=== PATIENT | male | born 1965 | race Hispanic/Latino ===

== ENCOUNTER 2018-09-10 20:50 | Emergency (ER) | payer OTHER, SELFPAY | END 2018-09-10 21:27 | disposition home or self-care (01) | LOC: EDH 20:50 | DX: J02.9 Acute pharyngitis, unspecified (principal); J20.9 Acute bronchitis, unspecified; Z88.0 Allergy status to penicillin ==

== ENCOUNTER 2019-09-24 09:12 | Emergency (ER) | payer OTHER, SELFPAY ==
[2019-09-24] MEDS ORDERED: IPRATROPIUM/ALBUTEROL SULFATE 3 ML SOLUTION IH ONE (10:00)
[2019-09-24 10:21] LABS: RAPID GROUP A STREP NEGATIVE (NEGATIVE)
== END 2019-09-24 11:15 | disposition home or self-care (01) ==
LOC: EDH 09:12
DX: J20.9 Acute bronchitis, unspecified (principal); J10.1 Influenza due to other identified influenza virus with other respiratory manifestations; Z88.0 Allergy status to penicillin
CPT/HCPCS: 71046; 87804; 87880; 94640

== ENCOUNTER 2019-10-23 18:03 | Emergency (ER) | payer SELFPAY ==
[2019-10-23] MEDS ORDERED: ONDANSETRON HCL 4 MG/2 ML VIAL ONE (18:29)
[2019-10-23] MEDS ORDERED: MORPHINE SULFATE 4 MG/1ML SYG ONE (18:30)
== END 2019-10-23 20:25 | disposition home or self-care (01) ==
LOC: EDH 18:03
DX: S43.005A Unspecified dislocation of left shoulder joint, initial encounter (principal); Z88.0 Allergy status to penicillin; W18.39XA Other fall on same level, initial encounter; Y93.89 Activity, other specified; Y92.89 Other specified places as the place of occurrence of the external cause; Y99.8 Other external cause status
CPT/HCPCS: 23650; 73020; 73030; 96374; 96375; 99285; J2270; J2405

== ENCOUNTER 2024-09-22 03:46 | Emergency (ER) | payer BC, SELFPAY ==
[~2024-09-22] VITALS: Ht 170.2 cm; Wt 84.8 kg
--- NOTE | 2024-09-22 04:01 | ERN ---
General Chief Complaint: Flank Pain Stated Complaint: FLANK PAIN Time Seen by MD: 03:53 History of Present Illness Initial Comments 59-year-old male who presents for right lower abdominal pain. It comes from the flank and radiates to the right lower quadrant. Very severe, colicky, 10/10 pain. Associated with a few episodes of vomiting. He has had kidney stones in the past and reports this feels the same. He was in his otherwise normal state of health less than 12 hours ago. Allergies: Coded Allergies: Penicillins (Unverified Allergy, Unknown, 10/23/19) Past Medical History Past Medical History: Kidney Stone Past Surgical History: None ROS Dictation CONSTITUTIONAL: No chills, no fever, no weakness, no diaphoresis, no malaise. HEAD/FACE: No signs of trauma. EENT: No eye pain, no blurred vision, no tearing, no double vision, no ear pain, no ear discharge, no nose pain, no nasal congestion, no throat pain, no throat swelling, no mouth pain. RESPIRATORY: No cough, no orthopnea, no SOB, no stridor, no wheezing. CARDIOVASCULAR: No chest pain, no edema, no palpitations, no syncope. GASTROINTESTINAL/ABDOMINAL: right-sided abdominal pain, vomiting GENITOURINARY: No abnormal discharge, no dysuria, no frequent urination, no hematuria. No complaints of pain in the genitals. MUSCULOSKELETAL: No back pain, no gout, no joint pain, no joint swelling, no muscle pain, no muscle stiffness, no neck pain. INTEGUMENTARY: No change in color, no change in hair/nails, no dryness, no lesion, no lumps, no rash. NEUROLOGICAL/PSYCH: No anxiety, not depressed, no emotional problem, no headache, no numbness, no pre-existing deficit, no history of seizures, no tremors, no weakness. HEMATOLOGIC/LYMPHATIC: Not anemic, no history of blood clots, no apparent bleeding, no bruising, glands not swollen. All Systems Negative, Except as Noted. Physical Exam Physical Exam Dictation VITAL SIGNS: Reviewed. GENERAL APPEARANCE: Alert, oriented x3, moderate distress due to pain HEAD AND FACE: Non-traumatic. EYES: PERRL, pink conjunctivas, eyelid no trauma, anterior chamber clear. EARS: Pinnas intact and no signs of trauma or erythema. Ear canals clear and no discharge. TMs no erythema. NOSE: No discharge, no bleeding. OROPHARYNX: Mouth normal, teeth no caries, tongue pink. Pharynx clear, no erythema. Tonsils no exudates, no abscesses noted. Mucous membrane moist. NECK: Supple, non-tender, no thyromegaly, no masses, no JVD, no bruits. BREAST: Deferred. CHEST: No tenderness, no crepitus, no paradoxical movement, no retractions. LUNGS: Clear, well-ventilated, symmetric, no rales, no wheezing, no rhonchi, no stridor, good breath sounds bilaterally. HEART: Regular rate, regular rhythm, no murmur, no gallops. VASCULAR: No peripheral edema. ABDOMEN: Soft, positive bowel sounds, nondistended, no guarding, nontender, no rebound, no masses no hepatomegaly, no splenomegaly, no Webster's sign, no hernias. RECTAL: Deferred. GENITAL: Deferred. NEUROLOGICAL: Normal speech, gross motor function intact, gross sensory function intact. MUSCULOSKELETAL: Neck nontender, full range of motion, back nontender, full range of motion. EXTREMITIES: Nontender, full range of motion. SKIN: Color pink, dry, no turgor, no rash, no lacerations, no abrasions, no contusions. LYMPHATICS: Deferred. Results Laboratory and Microbiology Lab and Micro Result Laboratory Tests Test 09/22/24 04:13 09/22/24 05:03 White Blood Count 17.4 K/uL (4.8-10.8) H Red Blood Count 5.15 MIL/uL (4.50-6.20) Hemoglobin 16.2 g/dL (14.0-18.0) Hematocrit 47.5 % (42-54) Mean Corpuscular Volume 92.2 fL (79-99) Mean Corpuscular Hemoglobin 31.5 pg (27.0-33.0) Mean Corpuscular Hemoglobin Concent 34.1 g/dL (32.0-36.0) Red Cell Distribution Width 12.3 % (11.0-15.5) Platelet Count 267 K/uL (130-400) Mean Platelet Volume 9.7 fL (7.5-10.5) Immature Granulocyte % (Auto) 0.5 % (0-1) Neutrophils (%) (Auto) 74.5 % (40.0-77.0) Lymphocytes (%) (Auto) 18.4 % (21.0-51.0) L Monocytes (%) (Auto) 5.4 % (3.0-13.0) Eosinophils (%) (Auto) 0.9 % (0.0-8.0) Basophils (%) (Auto) 0.3 % (0.0-5.0) Neutrophils # (Auto) 12.9 K/uL (1.8-7.7) H Lymphocytes # (Auto) 3.2 K/uL (1.0-4.8) Monocytes # (Auto) 0.9 K/uL (0.1-1.0) Eosinophils # (Auto) 0.16 K/uL (0.00-0.70) Basophils # (Auto) 0.06 K/uL (0.00-0.20) Absolute Immature Granulocyte (auto 0.08 K/uL (0-1) Nucleated Red Blood Cells 0.0 % (0.0-0.19) Sodium Level 139 mmol/L (136-145) Potassium Level 4.2 mmol/L (3.5-5.1) Chloride Level 104 mmol/L (101-111) Carbon Dioxide Level 24 mmol/L (21-32) Blood Urea Nitrogen 13 mg/dL (7-18) Creatinine 1.0 mg/dL (0.5-1.3) Glomerular Filtration Rate Calc 86 mL/min (>90) Random Glucose 158 mg/dL (70-105) H Total Calcium 10.0 mg/dL (8.5-10.1) Lipase 33 U/L (16-77) Urine Color LIGHT-YELLOW (YELLOW) Urine Appearance CLOUDY (CLEAR) H Urine pH 8.0 (5.0-8.0) Urine Specific [place] 1.020 (1.001-1.031) Urine Protein 10 mg/dL (NEGATIVE) H Urine Glucose (UA) NEGATIVE mg/dL (NEGATIVE) Urine Ketones 10 mg/dL (NEGATIVE) H Urine Occult Blood LARGE (NEGATIVE) H Urine Nitrate NEGATIVE (NEGATIVE) Urine Bilirubin NEGATIVE mg/dL (NEGATIVE) Urine Urobilinogen 0.2 mg/dL (0.2-1.0) Urine Leukocyte Esterase NEGATIVE [place]mina/uL Urine RBC TNTC /HPF (0-1) H Urine WBC None /HPF (0-1) Urine Squamous Epithelial Cells RARE /HPF (0-2) Urine Amorphous Crystals (Auto) RARE /LPF (None Seen) Urine Bacteria FEW /HPF (None Seen) MDM CC: Right lower abdominal pain vomiting Historian: Patient Limitations by social determinants of health: Uninsured Comorbidities: History of kidney stones Initial clinical exam, patient was very uncomfortable due to the pain. Started an IV and established pain medications. Differential diagnosis: Kidney stone, pyelonephritis, appendicitis, other. Vital signs are stable Labs: CBC does have leukocytosis 66161. No shift or bands. Metabolic panel is normal including renal function. Urinalysis shows blood but no signs of infection. CT scan per my independent interpretation shows a right-sided mid ureteral stone approximately 4 mm. Treatment in the ED: 1 L normal saline, IV Toradol, IV Dilaudid, Zofran. Re-evaluation: Patient was pain-free, no longer vomiting, asymptomatic. Plan: We will discharge with tamsulosin, pain control, Urology follow up ED Course Orders Procedure Category Date Status Time Cbc With Differential LAB 09/22/24 Complete 03:56 Urinalysis Profile LAB 09/22/24 Complete 03:56 0.9%Nacl 1000ml (Ns PHA 09/22/24 Complete 1000ml) 04:00 Ketorolac PHA 09/22/24 Complete Tromethamine 15mg/Ml 04:00 Hydromorphone 1 Mg PHA 09/22/24 Complete Inj (Dilaudid 1mg Inj 04:00 Ondansetron 4mg Inj PHA 09/22/24 Complete (Zofran 4mg Inj) 04:00 Ct Abdomen/Pelvis W/O CT 09/22/24 Taken Contrast 03:56 Lipase LAB 09/22/24 Complete 03:56 Basic Metabolic Panel LAB 09/22/24 Complete 03:56 Current Medications Medications (Trade) Dose Ordered Sig/Rafiq Route PRN Reason Start Time Stop Time Status Last Admin Dose Admin Hydromorphone HCl (DiLAUDid 1MG INJ) 1 mg ONCE ONCE IVP 09/22/24 04:00 09/22/24 04:01 DC 09/22/24 04:19 Ketorolac Tromethamine (toRADol) 15 mg ONCE ONCE IV 09/22/24 04:00 09/22/24 04:01 DC 09/22/24 04:19 Ondansetron HCl (zoFRAN 4MG INJ) 4 mg ONCE ONCE IVP 09/22/24 04:00 09/22/24 04:01 DC 09/22/24 04:19 Sodium Chloride 1,000 ml @ 0 mls/hr ONCE ONCE IV 09/22/24 04:00 09/22/24 04:01 DC 09/22/24 04:19 Vital Signs Date Time Temp Pulse Resp B/P (MAP) Pulse Ox O2 Delivery O2 Flow Rate FiO2 09/22/24 03:48 97.5 69 16 142/88 100 Room Air DX & DISP Disposition: Discharge Departure Impression: Primary Impression: Right kidney stone Condition: Stable Scripts Ondansetron (Ondansetron Odt) 4 Mg Tab.rapdis 1 TAB PO Q6HPRN PRN for nausea/vomiting for 4 Days, #16 TAB 0 Refills Prov: MICHAEL RAO DO 09/22/24 Hydrocodone/Acetaminophen (Hydrocodon-Acetaminophen 5-325) 5 Mg-325 Mg Tablet 1 TAB PO QIDP PRN for pain for 5 Days, #20 TAB 0 Refills Prov: MICHAEL RAO DO 09/22/24 Tamsulosin HCl (Flomax) 0.4 Mg Cap.er.24h 0.4 MG PO DAILY for 21 Days, #21 CAPSULE. Prov: MICHAEL RAO DO 09/22/24 Additional Instructions: You have a 5 mm kidney stone on the right side. This is causing your symptoms. Your lab work (CBC, BNP, urinalysis) shows an elevated white blood cell count consistent with inflammation, but is otherwise unremarkable. Kidney function is normal. The CT scan shows a 5 mm stone but is otherwise unremarkable. Stay hydrated. Drink at least 2-3 L of water per day. Avoid dehydration. For pain control, I recommend taking 800 mg of ibuprofen 3 times a day as needed. This medication is [id number]. I have also prescribed [place] tabs that you can take up to 4 times a day as needed. I have prescribed ondansetron dissolvable tabs to use as needed for nausea and vomiting. I have prescribed tamsulosin. Take this medication as prescribed. This medication helps relax of the ureters and aids in passing the stone. You may need to follow up with the urologist. I have given you a referral to Dr. Simmons. Depending on your insurance, you may need a referral from your primary provider. I recommend you contact your primary provider today for the next available appointment. Please return to the emergency department if you have any high fevers, persistent vomiting, worsening are unmanageable pain, or any other concerning symptom. Referrals: GOLD RYAN MD (PCP) SUZETTE SIMMONS MD, RYAN E DO Sep 22, 2024 04:01
[2024-09-22] MEDS: 0.9%NACL 1000ML 1,000 ML IV ONE (04:19)
[2024-09-22] MEDS: ketOROlac 15MG/ML VIAL (15MG/ML) IV ONE (04:19)
[2024-09-22] MEDS: ondanSETRON 4MG INJ IVP ONE (04:19)
[2024-09-22] MEDS: hydroMORPHone 1 MG INJ IVP ONE (04:19)
[2024-09-22 04:22] LABS: BASOPHILS # (AUTO) 0.06 K/uL (0.00-0.20); BASOPHILS % (AUTO) 0.3 % (0.0-5.0); EOSINOPHILS # (AUTO) 0.16 K/uL (0.00-0.70); EOSINOPHILS % (AUTO) 0.9 % (0.0-8.0); HEMATOCRIT 47.5 % (42-54); IMMATURE GRANULOCYTE ABSOLUTE 0.08 K/uL (0-1); LYMPHOCYTES # (AUTO) 3.2 K/uL (1.0-4.8); LYMPHOCYTES % (AUTO) 18.4 % (21.0-51.0); MEAN CORPUSCULAR HEMOGLOBIN 31.5 pg (27.0-33.0); MEAN CORPUSCULAR HGB CONC 34.1 g/dL (32.0-36.0); MEAN CORPUSCULAR VOLUME 92.2 fL (79-99); MONOCYTES # (AUTO) 0.9 K/uL (0.1-1.0); MONOCYTES % (AUTO) 5.4 % (3.0-13.0); NEUTROPHILS # (AUTO) 12.9 K/uL (1.8-7.7); NEUTROPHILS % (AUTO) 74.5 % (40.0-77.0); PLATELET COUNT (AUTO) 267 K/uL (130-400); RED BLOOD CELL COUNT(AUTO) 5.15 MIL/uL (4.50-6.20); RED CELL DISTRIBUTION WIDTH 12.3 % (11.0-15.5); WHITE BLOOD COUNT (AUTO) 17.4 K/uL (4.8-10.8)
[2024-09-22 04:31] LABS: POTASSIUM 4.2 mmol/L (3.5-5.1)
[2024-09-22 05:10] LABS: APPEARANCE,URINE CLOUDY (CLEAR); BILIRUBIN,URINE NEGATIVE (NEGATIVE); COLOR,URINE LIGHT-YELLOW (YELLOW); GLUCOSE, URINE (UA) NEGATIVE (NEGATIVE); KETONES,URINE 10 mg/dL (NEGATIVE); LEUKOCYTE ESTERASE ,URINE NEGATIVE Leu/uL (NEGATIVE); NITRATE,URINE NEGATIVE (NEGATIVE); OCCULT BLOOD,URINE LARGE (NEGATIVE); PROTEIN,URINE 10 mg/dL (NEGATIVE); UROBILINOGEN,URINE 0.2 mg/dL (0.2-1.0)
[2024-09-22 05:14] LABS: ADD UA MICROSCOPIC YES
[2024-09-22 05:15] LABS: BACTERIA,URINE FEW /HPF (None Seen); MUCUS,URINE RARE LPF (None Seen); RBC,URINE TNTC /HPF (0-1); SQUAMOUS EPITHELIAL CELL,UR RARE /HPF (0-2)
[2024-09-22] MEDS ORDERED: ONDA-243 PO (06:24)
[2024-09-22] MEDS ORDERED: TAMS-1 PO (06:24)
[2024-09-22] MEDS ORDERED: HYDR-4060 PO (06:24)
[2024-09-22 06:28] VITALS: BP 100/62; PULSE 76; RESP 16; TEMP 98.6; O2SAT 100
--- NOTE | 2024-09-22 08:39 | HMCIMG ---
CT ABDOMEN/PELVIS W/O CONTRAST HISTORY: Abdominal pain COMPARISON: 03/20/2014 TECHNIQUE: Multiple sequential axial images of the abdomen and pelvis were obtained from the dome of the diaphragm through symphysis pubis. Patient was not given contrast through intravenous route. Oral contrast was not given. FINDINGS: No pleural effusion is seen bilaterally. There is no evidence of parenchymal disease or pulmonary nodule of the visualized lower lungs. There are old L5 pars defects with grade 2 anterolisthesis at the L5-S1 level with disc space narrowing. Liver measures 14.5 cm. A small hiatal hernia is seen. Degenerative changes of the thoracolumbar spine are present. The heart is not enlarged. Nonspecific 2.2 cm splenic lesion is seen not definitely seen on previous study and clinical correlation is recommended. The liver, spleen, adrenal glands and pancreas are unremarkable. No evidence of hydronephrosis is seen on the left. There is mild right hydronephrosis with 5 mm renal stone in the proximal mid right ureter. There is diverticulosis. Fecal material is seen in the colon. There are normal size retroperitoneal and mesenteric lymph nodes. No ascites is seen. No CT evidence of acute appendicitis is seen. Pelvic sidewalls are symmetric bilaterally. Bladder is moderately distended. IMPRESSION: 1. Mild right hydronephrosis with 5 mm renal stone in the right proximal mid ureter. CT was performed with one or more following dose reduction techniques: automated exposure control, adjustment of the mA and kv according to patient's size, or use of a iterative reconstruction technique.
== END 2024-09-22 06:35 | disposition home or self-care (01) ==
LOC: EDH 03:46
DX: N13.2 Hydronephrosis with renal and ureteral calculous obstruction (principal); Z88.0 Allergy status to penicillin
CPT/HCPCS: 99284; 74176; 96374; 96375; 80048; 83690; 85025; 81001; 36415; J1885; J1171; J7030; J2405

== ENCOUNTER 2024-11-26 17:03 | Emergency (ER) | payer BC ==
[~2024-11-26] VITALS: Ht 170.2 cm; Wt 86.2 kg
[~2024-11-26 17:03] MED LIST: HYDR-4060 PO; ONDA-243 PO; TAMS-1 PO
--- NOTE | 2024-11-26 17:13 | ERN ---
General Chief Complaint: Nausea,Vomiting,Diarrhea Stated Complaint: VOMITING Time Seen by MD: 17:06 Time Seen by Midlevel: 17:06 Source: patient History of Present Illness Initial Comments Patient is a 59-year-old male with a past medical history of kidney stones and marijuana use presenting to the emergency department for evaluation of right flank pain that started yesterday. The right flank pain was sudden onset and patient states it feels similar to the previous time he was diagnosed with a kidney stone. He was diagnosed with a right kidney stone approximately one month ago and given Flomax, Toradol, and Zofran for outpatient management. He does report some mild subjective nausea and vomiting at home but states he feels improved today after taking the medication he was previously prescribed. Allergies: Coded Allergies: Penicillins (Unverified Allergy, Unknown, 10/23/19) Home Meds Active Scripts Ondansetron (Ondansetron Odt) 4 Mg Tab.rapdis, 1 TAB PO Q6HPRN PRN for nausea/vomiting for 4 Days, #16 TAB 0 Refills Prov:MICHAEL RAO DO 09/22/24 Hydrocodone/Acetaminophen (Hydrocodon-Acetaminophen 5-325) 5 Mg-325 Mg Tablet, 1 TAB PO QIDP PRN for pain for 5 Days, #20 TAB 0 Refills Prov:MICHAEL RAO DO 09/22/24 Tamsulosin HCl (Flomax) 0.4 Mg Cap.er.24h, 0.4 MG PO DAILY for 21 Days, #21 CAPSULE. Prov:MICHAEL RAO DO 09/22/24 Past Medical History Past Medical History: Kidney Stone Past Surgical History: None ROS Dictation CONSTITUTIONAL: Negative except for HPI HEAD/FACE: Negative except for HPI EENT: Negative except for HPI RESPIRATORY: Negative except for HPI GASTROINTESTINAL/ABDOMINAL: Negative except for HPI GENITOURINARY: Negative except for HPI MUSCULOSKELETAL: Negative except for HPI INTEGUMENTARY: Negative except for HPI NEUROLOGICAL/PSYCH: Negative except for HPI HEMATOLOGIC/LYMPHATIC: Negative except for HPI All Systems Negative, Except as noted above. 13 point review of systems assessed and all negative except for above. Physical Exam Physical Exam Dictation Vital Signs reviewed General Appearance: Alert, oriented x 3, no acute distress, well developed, nourished. Head and Face: non-traumatic. Eyes: PERRL, pink conjunctivas, eyelid no trauma, anterior chamber with arcus senilis. Ears: Pinnas intact and no signs of trauma or erythema ear canals clear and no discharge TM no erythema Nose: No discharge, no bleeding. Oropharynx: Mouth normal, tongue pink, pharynx clear,no erythema, tonsils no exudates, no abscesses noted, mucous membrane moist Neck: Supple, non-tender, no thyromegaly, no masses, no JVD, no bruits Breast:Deferred Chest:No tenderness, no crepitus, no paradoxical movement, no retractions Lungs:Clear, well-ventilated, symmetric, no rales, no wheezing, no rhonchi, no stridor, good breath sounds bilaterally Heart: Regular rate, regular rhythm, no murmur, no gallops Vascular: no peripheral edema, Abdomen: Soft, positive bowel sounds, nondistended, no guarding, nontender, no rebound, no masses no hepatomegaly, no splenomegaly, no Webster's sign, no hernias. Rectal: Deferred Genital: Deferred Neurological: Normal speech, motor function intact, sensory function intact Musculoskeletal: Neck nontender, full range of motion, back nontender, full range of motion, Extremities: nontender, full range of motion Skin: Color pink, dry, no turgor, no rash, no lacerations, no abrasions, no contusions. Lymphatic: Deferred Results Laboratory and Microbiology Lab and Micro Result Laboratory Tests Test 11/26/24 17:42 11/26/24 18:05 White Blood Count 17.8 K/uL (4.8-10.8) H Red Blood Count 5.24 MIL/uL (4.50-6.20) Hemoglobin 16.3 g/dL (14.0-18.0) Hematocrit 47.2 % (42-54) Mean Corpuscular Volume 90.1 fL (79-99) Mean Corpuscular Hemoglobin 31.1 pg (27.0-33.0) Mean Corpuscular Hemoglobin Concent 34.5 g/dL (32.0-36.0) Red Cell Distribution Width 12.8 % (11.0-15.5) Platelet Count 266 K/uL (130-400) Mean Platelet Volume 9.9 fL (7.5-10.5) Immature Granulocyte % (Auto) 0.3 % (0-1) Neutrophils (%) (Auto) 86.6 % (40.0-77.0) H Lymphocytes (%) (Auto) 7.5 % (21.0-51.0) L Monocytes (%) (Auto) 5.5 % (3.0-13.0) Eosinophils (%) (Auto) 0.0 % (0.0-8.0) Basophils (%) (Auto) 0.1 % (0.0-5.0) Neutrophils # (Auto) 15.4 K/uL (1.8-7.7) H Lymphocytes # (Auto) 1.3 K/uL (1.0-4.8) Monocytes # (Auto) 1.0 K/uL (0.1-1.0) Eosinophils # (Auto) 0.00 K/uL (0.00-0.70) Basophils # (Auto) 0.02 K/uL (0.00-0.20) Absolute Immature Granulocyte (auto 0.06 K/uL (0-1) Nucleated Red Blood Cells 0.0 % (0.0-0.19) White Cell Morphology Comment See comments Sodium Level 137 mmol/L (136-145) Potassium Level 3.7 mmol/L (3.5-5.1) Chloride Level 99 mmol/L (101-111) L Carbon Dioxide Level 25 mmol/L (21-32) Blood Urea Nitrogen 20 mg/dL (7-18) H Creatinine 1.5 mg/dL (0.5-1.3) H Glomerular Filtration Rate Calc 53 mL/min (>90) Random Glucose 166 mg/dL (70-105) H Total Calcium 10.6 mg/dL (8.5-10.1) H Total Bilirubin 1.0 mg/dL (0.2-1.0) Direct Bilirubin 0.2 mg/dL (0.0-0.3) Aspartate Amino Transf (AST/SGOT) 20 U/L (10-37) Alanine Aminotransferase (ALT/SGPT) 31 U/L (12-78) Alkaline Phosphatase 115 U/L (50-136) Total Protein 8.1 g/dL (6.0-8.3) Albumin 4.1 g/dL (3.5-5.0) Lipase 20 U/L (16-77) Urine Color YELLOW (YELLOW) Urine Appearance CLEAR (CLEAR) Urine pH 8.0 (5.0-8.0) Urine Specific [place] 1.030 (1.001-1.031) Urine Protein 70 mg/dL (NEGATIVE) H Urine Glucose (UA) 150 mg/dL (NEGATIVE) H Urine Ketones 10 mg/dL (NEGATIVE) H Urine Occult Blood NEGATIVE (NEGATIVE) Urine Nitrate NEGATIVE (NEGATIVE) Urine Bilirubin NEGATIVE mg/dL (NEGATIVE) Urine Urobilinogen 0.2 mg/dL (0.2-1.0) Urine Leukocyte Esterase NEGATIVE Carmina/uL Urine RBC 6-10 /HPF (0-1) H Urine WBC 0-1 /HPF (0-1) Urine Bacteria None /HPF (None Seen) Urine Yeast RARE /HPF (None Seen) Labs Reviewed?: Yes MDM MDM: Patient is a 59-year-old male with a past medical history of kidney stones and marijuana use presenting to the emergency department for evaluation of right flank pain that started yesterday. The right flank pain was sudden onset and patient states it feels similar to the previous time he was diagnosed with a kidney stone. He was diagnosed with a right kidney stone approximately one month ago and given Flomax, Toradol, and Zofran for outpatient management. He does report some mild subjective nausea and vomiting at home but states he feels improved today after taking the medication he was previously prescribed. On physical examination the patient is in no acute distress. There was no CVA tenderness. Initial vital signs are stable. Patient was afebrile and nontoxic appearing. We will obtain basic labs and a CT scan of the abdomen to evaluate for any ureter stone. CBC shows leukocytosis with a white blood cell count of 17.8 which is unchanged when compared to the CBC performed on September of 2024. At that time the patient had presented to the emergency department was diagnosed with a right kidney stone. The remainder of his CBC is unremarkable. There was no anemia or thrombocytopenia. Chemistries reveal no hyponatremia or hypokalemia. There is a slight bump in his creatinine at 1.5 and a BUN of 20. The remainder of his chemistries are stable. Urinalysis shows 6-10 urine red blood cells but no evidence of infection. CT scan of the abdomen/pelvis reveals a 4.4mm urinary bladder stone, recently passed from the right urinary system with residual [id number] right hydroureteronephrosis. We discussed these lab and imaging findings with the patient. The patient was hydrated with1 L of IV fluids. We administered1 g of Rocephin IV for his unspecified leukocytosis. We will discharged home with supportive management. Differential diagnosis: There are no social concerns with this patient. Prescription drug management Prescriptions will include: None Medical management and examination interpretation discussions were had by me with other qualified healthcare professionals as indicated for the patient's care. ED Course Orders Procedure Category Date Status Time Cbc With Differential LAB 11/26/24 Complete 17:09 Basic Metabolic Panel LAB 11/26/24 Complete 17:09 Lipase LAB 11/26/24 Complete 17:09 Hepatic Function Panel LAB 11/26/24 Complete 17:09 Urinalysis Profile LAB 11/26/24 Complete 17:09 Ct Abdomen/Pelvis W/O CT 11/26/24 Resulted Contrast 17:09 0.9%Nacl 1000ml (Ns PHA 11/26/24 Complete 1000ml) 17:30 Ondansetron 4mg Inj PHA 11/26/24 Complete (Zofran 4mg Inj) 17:30 Ketorolac PHA 11/26/24 Complete Tromethamine 15mg/Ml 17:30 Current Medications Medications (Trade) Dose Ordered Sig/Rafiq Route PRN Reason Start Time Stop Time Status Last Admin Dose Admin Ketorolac Tromethamine (toRADol) 15 mg ONCE ONCE IV 11/26/24 17:30 11/26/24 17:31 DC Ondansetron HCl (zoFRAN 4MG INJ) 4 mg ONCE ONCE IVP 11/26/24 17:30 11/26/24 17:31 DC Sodium Chloride 1,000 ml @ 0 mls/hr ONCE ONCE IV 11/26/24 17:30 11/26/24 17:31 DC Vital Signs Date Time Temp Pulse Resp B/P (MAP) Pulse Ox O2 Delivery O2 Flow Rate FiO2 11/26/24 17:04 98.1 64 18 155/91 98 Room Air [place] [id number] [address] IMAGING REPORT Signed PATIENT: YI MENENDEZ MR#: [id number] : 1965 SEX: M AGE: 59 LOCATION: [facility] ORDER [id number] STATUS: REG ER REPORT#: [id number] SERVICE [id number] REASON: right flank pain hx of kidney stones ORDERING PHYSICIAN: TRACIE BAKER PROCEDURE: ABD PEL WO - CT ABDOMEN/PELVIS W/O CONTRAST CT ABDOMEN WITHOUT CONTRAST. CT PELVIS WITHOUT CONTRAST. INDICATION: Right flank pain TECHNIQUE: Routine transaxial imaging using 5 mm slice thickness through the abdomen and pelvis without the administration of IV contrast. Thin slice reconstructions are also provided. Coronal and sagittal reformatted images acquired for interpretation. CT was performed with one or more of the following dose reduction techniques: Automated exposure control, adjustment of the mA and/or kV according to patient size, or use of iterative reconstruction technique. COMPARISON: 09/22/2024 FINDINGS: ON NONCONTRAST IMAGING: ABDOMEN: Heart size is normal. Visible lung bases are clear. Tiny hiatal hernia. No abnormal left renal calcifications, hydronephrosis, perinephric inflammation, or proximal hydroureter detected. 4.4 mm urinary bladder stone, recently passed from the right urinary system with residual mild to moderate right hydroureteronephrosis. The liver is normal in size and smooth in contour without biliary duct dilation. The spleen is normal in size and attenuation. The gallbladder appears normal. The pancreas appears normal without pancreatic duct dilation. The adrenal glands appear normal. No significant abdominal, retrocrural or retroperitoneal adenopathy noted. No evidence for intra-abdominal free air or organized fluid collection. No aortic aneurysmal dilation identified. PELVIS: No abnormal calcifications within the urinary bladder or distal ureters. No evidence for free air or organized pelvic fluid collection. No significant pelvic adenopathy detected. Several diverticula along the distal colon. Terminal ileum appears unremarkable. The appendix appears normal. Mild thoracolumbar spondylosis. 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 4.4 mm urinary bladder stone, recently passed from the right urinary system with residual mild to moderate right hydroureteronephrosis. 2. Distal colonic diverticulosis. 3. Tiny hiatal hernia. DICTATED BY: JOSE RONDON MD DATE: 11/26/24 1800 ELECTRONICALLY SIGNED BY: JOSE RONDON MD DATE: 11/26/24 180 DX & DISP Disposition: Discharge Departure Impression: Primary Impression: Calculus, urinary bladder Condition: Stable Additional Instructions: Your CT scan of the abdomen/pelvis reveals a 4.4 Mm kidney stone that has dropped down to the bladder. You should urinate this stone within the next 24 hours. Your blood work today shows an elevated white blood cell count which could be a reactive process to the kidney stone you just passed. However, you were given one dose of ceftriaxone in the emergency department cover for any infection. Please follow up with your primary care doctor in 2-3 days for repeat evaluation. If you develop any new or worsening symptoms please report to the ER for further evaluation. Referrals: GOLD RYAN MD (PCP) Time of Disposition: 18:45 I have reviewed the case, and I agree with, Diagnosis and Plan I performed the substantive portion of the visit. I have reviewed and personally made and approve the management plan that is documented in the note by myself or the RAHAT. I acknowledge for responsibility for the patient's management plan. TRACIE BAKER Nov 26, 2024 17:13
[2024-11-26 17:30] VITALS: TEMP 98.1
[2024-11-26 17:54] LABS: BASOPHILS # (AUTO) 0.02 K/uL (0.00-0.20); BASOPHILS % (AUTO) 0.1 % (0.0-5.0); HEMATOCRIT 47.2 % (42-54); IMMATURE GRANULOCYTE ABSOLUTE 0.06 K/uL (0-1); LYMPHOCYTES # (AUTO) 1.3 K/uL (1.0-4.8); LYMPHOCYTES % (AUTO) 7.5 % (21.0-51.0); MEAN CORPUSCULAR HEMOGLOBIN 31.1 pg (27.0-33.0); MEAN CORPUSCULAR HGB CONC 34.5 g/dL (32.0-36.0); MEAN CORPUSCULAR VOLUME 90.1 fL (79-99); MONOCYTES % (AUTO) 5.5 % (3.0-13.0); NEUTROPHILS # (AUTO) 15.4 K/uL (1.8-7.7); NEUTROPHILS % (AUTO) 86.6 % (40.0-77.0); PLATELET COUNT (AUTO) 266 K/uL (130-400); RED BLOOD CELL COUNT(AUTO) 5.24 MIL/uL (4.50-6.20); RED CELL DISTRIBUTION WIDTH 12.8 % (11.0-15.5); WHITE BLOOD COUNT (AUTO) 17.8 K/uL (4.8-10.8)
[2024-11-26 18:00] LABS: CREATININE 1.5 mg/dL (0.5-1.3); POTASSIUM 3.7 mmol/L (3.5-5.1)
[2024-11-26 18:04] LABS: ALBUMIN 4.1 g/dL (3.5-5.0); BILIRUBIN,DIRECT 0.2 mg/dL (0.0-0.3); TOTAL PROTEIN, SERUM 8.1 g/dL (6.0-8.3)
--- NOTE | 2024-11-26 18:05 | HMCIMG ---
CT ABDOMEN WITHOUT CONTRAST. CT PELVIS WITHOUT CONTRAST. INDICATION: Right flank pain TECHNIQUE: Routine transaxial imaging using 5 mm slice thickness through the abdomen and pelvis without the administration of IV contrast. Thin slice reconstructions are also provided. Coronal and sagittal reformatted images acquired for interpretation. CT was performed with one or more of the following dose reduction techniques: Automated exposure control, adjustment of the mA and/or kV according to patient size, or use of iterative reconstruction technique. COMPARISON: 09/22/2024 FINDINGS: ON NONCONTRAST IMAGING: ABDOMEN: Heart size is normal. Visible lung bases are clear. Tiny hiatal hernia. No abnormal left renal calcifications, hydronephrosis, perinephric inflammation, or proximal hydroureter detected. 4.4 mm urinary bladder stone, recently passed from the right urinary system with residual mild to moderate right hydroureteronephrosis. The liver is normal in size and smooth in contour without biliary duct dilation. The spleen is normal in size and attenuation. The gallbladder appears normal. The pancreas appears normal without pancreatic duct dilation. The adrenal glands appear normal. No significant abdominal, retrocrural or retroperitoneal adenopathy noted. No evidence for intra-abdominal free air or organized fluid collection. No aortic aneurysmal dilation identified. PELVIS: No abnormal calcifications within the urinary bladder or distal ureters. No evidence for free air or organized pelvic fluid collection. No significant pelvic adenopathy detected. Several diverticula along the distal colon. Terminal ileum appears unremarkable. The appendix appears normal. Mild thoracolumbar spondylosis. 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 4.4 mm urinary bladder stone, recently passed from the right urinary system with residual mild to moderate right hydroureteronephrosis. 2. Distal colonic diverticulosis. 3. Tiny hiatal hernia.
[2024-11-26 18:13] LABS: APPEARANCE,URINE CLEAR (CLEAR); BILIRUBIN,URINE NEGATIVE (NEGATIVE); COLOR,URINE YELLOW (YELLOW); GLUCOSE, URINE (UA) 150 mg/dL (NEGATIVE); KETONES,URINE 10 mg/dL (NEGATIVE); LEUKOCYTE ESTERASE ,URINE NEGATIVE Leu/uL (NEGATIVE); NITRATE,URINE NEGATIVE (NEGATIVE); OCCULT BLOOD,URINE NEGATIVE (NEGATIVE); PROTEIN,URINE 70 mg/dL (NEGATIVE); UROBILINOGEN,URINE 0.2 mg/dL (0.2-1.0)
[2024-11-26 18:15] LABS: ADD UA MICROSCOPIC YES
[2024-11-26 18:16] LABS: MUCUS,URINE RARE LPF (None Seen); WBC,URINE 0-1 /HPF (0-1); YEAST,URINE BUDDING RARE /HPF (None Seen)
[2024-11-26] MEDS: ondanSETRON 4MG INJ IVP ONE (18:38)
[2024-11-26] MEDS: ketOROlac 15MG/ML VIAL (15MG/ML) IV ONE (18:38)
[2024-11-26] MEDS: 0.9%NACL 1000ML 1,000 ML IV ONE (18:38)
[2024-11-26] MEDS: cefTRIAXone 1G VIAL IVPB ONE (19:17)
[2024-11-26 19:27] VITALS: BP 147/83; PULSE 66; RESP 18; O2SAT 100
== END 2024-11-26 20:05 | disposition home or self-care (01) ==
LOC: EDH 17:03
DX: N21.0 Calculus in bladder (principal); Z88.0 Allergy status to penicillin
CPT/HCPCS: 99284; 74176; 96365; 96375; 96361; 80076; 80048; 83690; 85025; 81001; 36415; J1885; J7030; J0696; J2405